=== PATIENT | female | born 1990 | race Caucasian/White ===

== ENCOUNTER 2018-05-08 22:31 | Emergency (ER) | payer SELFPAY ==
[~2018-05-08] VITALS: Ht 152.4 cm; Wt 79.5 kg
[2018-05-08 22:39] VITALS: BP 120/84; TEMP 97.8
[2018-05-08] MEDS ORDERED: AMOXICILLIN 50500 MG PO (23:00)
[2018-05-08] MEDS ORDERED: NORCO 325 MG-51 TAB PO (23:00)
[2018-05-08 23:17] VITALS: PULSE 79
== END 2018-05-08 23:17 | disposition home or self-care (01) ==
LOC: COL.ER 22:31
DX: K02.9 Dental caries, unspecified (principal); F17.210 Nicotine dependence, cigarettes, uncomplicated

== ENCOUNTER 2021-10-29 07:19 | Emergency (ER) | payer BC ==
[~2021-10-29] VITALS: Ht 149.9 cm; Wt 59.1 kg
[~2021-10-29 07:19] MED LIST: AMOXICILLIN 50500 MG PO; IBU600 MG PO; NORCO 325 MG-51 TAB PO; OSCAL 500 TAB500 MG PO; PRENATAL MVI PO
[2021-10-29 07:25] VITALS: BP 108/71; PULSE 82; TEMP 97.7
[2021-10-29] MEDS ORDERED: PERCOCET 325 MG1 TA2 PO (07:47)
[2021-10-29] MEDS ORDERED: AMOXICILLIN 50500 MG PO (07:48)
== END 2021-10-29 07:54 | disposition home or self-care (01) ==
LOC: COL.ER 07:19
DX: K02.9 Dental caries, unspecified (principal)

== ENCOUNTER 2022-01-16 01:35 | Inpatient (IN) | payer BC ==
[2022-01-16] VITALS (15 sets, daily range): BP systolic 90–131; BP diastolic 46–65; PULSE 65–98; TEMP 97.5–98.9
[~2022-01-16] VITALS: Ht 149.9 cm; Wt 72.7 kg
[~2022-01-16 01:35] MED LIST changes: +PERCOCET 325 MG1 TA2 PO
--- NOTE | 2022-01-16 01:45 | NUR ---
0145- PT PRESENTS TO OB UNIT VIA W/C. PT IS BREATHING THROUGH CTX. PT REPORTS SHE HAS NOT HAD ANY CARE WITH THIS . PT IS A 31 YEAR OLD FEMALE, G6, P3, L4. SHE THINKS HER LMP WAS 04/28/21 WHICH WOULD MAKE PT AROUND 37 WEEKS. PT REPORTS SHE HAS BEEN [facility] ALL DAY SINCE ABOUT 10 THIS AM. SHE REPORTS +FM, DENIES ANY LOF OR VB. ABDOMEN PALPATES FIRM WITH CTX.PT'S SPOUSE, SIMI IS PRESENT. PT REPORTS THAT ALL OF HER DELIVERIES WERE VAGINAL W/O ANY COMPLICATIONS. PT STATES THAT HER LAST SHE HAD TWINS AT 37 WGA. 0148- CHECKED PT AND SVE:/0 WITH A BULGING BAG, SUTURES FELT. DR. BYNUM NOTIFIED TO COME TO HOSPITAL FOR IMMINENT DELIVERY. 0155- #20g TO RT WRIST STARTED BY SARAH ALFARO. LABS DRAWN WITH IV START AND IV BOLUS STARTED. PT TOLERATED WELL. PT STILL BREATHING THROUGH CONTRACTIONS WITH THE URGE TO PUSH. 0200- SARAH MADSEN GOING OVER CONSENTS WITH SPOUSE, SIMI AND CONSENTS SIGNED. 0203- DR. BYNUM AT . 0206- AROM PERFORMED AND MECONIUM OBSERVED. 0210- PT STARTING TO PUSH WITH CONTRACTIONS. 0227- VIABLE MALE. PINK AND CRYING. DRIED AND STIMULATED. CORD CLAMPED AND CUT. INFANT TAKEN TO RADIANT WARMER AND ASSESSED BY NURSERY RNCHRISTIANNE. 0233- PLACENTA DELIVERED AND INTACT. PITOCIN BOLUS INFUSING AT 333 ML/HR. MORPHINE 4 MG IV GIVEN X1 DOSE PER DR. BYNUM FOR PAIN.
[2022-01-16] MEDS ORDERED: PRENATAL TABLET PO (01:57)
[2022-01-16 02:08] LABS: BASO # 0.1 K/mm3 (0.0-0.2); BASO % 0.5 % (0.0-2.0); EOS % 0.1 % (0.0-4.0); GRAN % 82.6 % (42.2-75.2); HEMATOCRIT 30.3 % (37.0-47.0); HEMOGLOBIN 9.8 g/dl (12.5-16.0); LYMPH # 1.8 K/mm3 (1.2-3.4); LYMPH % 11.2 % (20.0-51.0); MEAN CELL VOLUME 83 fl (80.0-100.0); MEAN CORPUSCULAR HEMOGLOBIN 27 pg (27-31); MEAN CORPUSCULAR HGB CONC 32 g/dl (33.0-37.0); MEAN PLATELET VOLUME 8.8 fl (7.4-10.4); MONO # 0.8 K/mm3 (0.1-0.6); PLATELET COUNT 160 K/mm3 (130-400); RED BLOOD COUNT 3.67 M/mm3 (4.10-5.30); REDCELL DISTRIBUTION WIDTH-CV 13.9 % (11.5-14.5)
--- NOTE | 2022-01-16 03:00 | NUR ---
0300 LARGE 10CC CLOT PASSED. FUNDAS 1/U BEFORE FUNDAL MASSAGE AND U/U AFTER MASSAGE. DR BYNUM AWARE. METHERGINE 0.2 MG GIVEN IM.
--- NOTE | 2022-01-16 03:15 | NUR ---
0315 3CM CLOT PASSED. FUNDAS FIRM. BABY TO BREAST
--- NOTE | 2022-01-16 04:15 | NUR ---
0415 FUNDAS FIRM WITH NO EXCESS VAG BLEEDING AT THIS TIME AND NO CLOTS PASSED.
--- NOTE | 2022-01-16 04:45 | NUR ---
0445 IV INFUSED AND TO INT. AMB TO BR WITH ASSIST. UNABLE TO VOID. PERICARE DONE. AMB TO 208 AND CHIOMA WELL. ORIENTED TO ROOM AND TO NEED FOR UA WHEN VOIDS.
[2022-01-16 07:34] LABS: HIV 1/2 Antibodies Non-Reactive; HIV-1p24 Antigen Non-Reactive
[2022-01-16 07:42] LABS: COLLECTION METHOD CATHETER
[2022-01-16 08:11] LABS: MUCOUS Present (NOT PRESENT); PH 5 (5-8); SQUAMOUS EPITHELIAL 0-2 /hpf (0-10); URINE APPEARANCE Hazy (CLEAR/HAZY); URINE BACTERIA Rare /hpf (NONE SEEN); URINE BILIRUBIN Negative (NEGATIVE); URINE BLOOD 3+ (NEGATIVE); URINE COLOR Yellow (YELLOW); URINE GLUCOSE 1+ (NEGATIVE); URINE KETONE Trace (NEGATIVE); URINE LEUKOCYTE ESTERASE Negative (NEGATIVE); URINE NITRATE Negative (NEGATIVE); URINE PROTEIN(semi-quant) 1+ (NEGATIVE); URINE RBC >50 /hpf (0-2); URINE UROBILINOGEN >=4.0 (NEGATIVE)
[2022-01-16 08:20] LABS: TRICYCLIC ANTIDEPRESS URINE NEGATIVE
--- NOTE | 2022-01-16 09:36 | NUR ---
Initial visit; Parents thanked Production Planner for offering congratulations and God's blessings for the of their son. Production Planner thanked family for choosing [facility].
--- NOTE | 2022-01-16 13:53 | NUR ---
Supervisor Irrigation was consulted in OB for patient due to lack of care and positive UDS for marijuana at time of delivery. SW met with patient who reports she lives in [place] with her and father of baby, Kane. Patient has four other children at home and Kane is currently with them. Patient reports she has all supplies needed for baby and also stated she has a good local support system. Patient is and advised she has not applied for WIC as she believes she is above the income guidelines. 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 Patient is still working on establishing childcare for Gal. SW addressed lack of care. Patient advised that with her other four children, she had care because she had [employer], which covered everything. Patient states that with their current, private insurance she would have had more out of pocket expenses that she cannot afford. Patient had also considered having a home , however ended up coming to the hospital after laboring all day. SW also addressed marijuana use. Patient had positive UDS at time of delivery, 01/16/22. Patient states she and her occasionally smoke delta 8 cigaretts, but not often. Patient reported no concerns about returning home and had no further questions. Patient also denied any history of post depression. SW provided and reviewed [facility] Resource Guide. SW made report to CPS (intake #[id number]) based on positive UDS for marijuana.
[2022-01-16 22:48] LABS: HEPATITIS B SURFACE ANTIGEN Negative (Negative)
[2022-01-17 07:45] VITALS: BP 97/62; PULSE 80; TEMP 97.8
[2022-01-17 12:45] VITALS: BP 118/68; PULSE 90; TEMP 98.2
--- NOTE | 2022-01-17 14:35 | NUR ---
case management social worker spoke with Dr Carine Riggs regarding findings during social work visit.
[2022-01-17 17:00] VITALS: BP 109/71; PULSE 99; TEMP 98.2
[2022-01-17 20:15] VITALS: BP 139/71; PULSE 113; TEMP 98.4
[2022-01-18 07:30] VITALS: BP 115/71; PULSE 85; TEMP 98.2
[2022-01-18] MEDS ORDERED: IBU800 M1 PO (08:43)
== END 2022-01-18 11:30 | disposition home or self-care (01) | DRG 806 ==
LOC: LDRO 01:35 → OB 01:52 → LDR 01:52 → OB 04:45
PROVIDERS: Obstetrics & Gynecology; ADMIT Obstetrics & Gynecology
PROC: 10E0XZZ Delivery of Products of Conception, External Approach (ICD-10-PCS; principal; 2022-01-16)
DX: O77.0 Labor and delivery complicated by meconium in amniotic fluid (principal); O99.324 Drug use complicating childbirth; Z37.0 Single live birth; F12.90 Cannabis use, unspecified, uncomplicated; F15.90 Other stimulant use, unspecified, uncomplicated; Z3A.37 37 weeks gestation of pregnancy
CPT/HCPCS: J2210; J2270; J2590; J7120